=== PATIENT | male | born 1930 | race Caucasian/White ===

== ENCOUNTER → 2018-03-30 | Outpatient (CLI) | payer OTHER ==
[~2018-03-30] MED LIST: ACET325T14 PO; AMIO200T PO; ASPI325T17 PO; GABA300C10 PO; LANS15CA60 PO; LEVO100T PO; LEVO100T5 PO; METO25TA35 PO; OXYC5TAB3 PO
== END | disposition home or self-care (01) ==
LOC: CFH 09:28
PROVIDERS: ATTEND Internal Medicine
DX: K65.4 Sclerosing mesenteritis (principal); Z90.49 Acquired absence of other specified parts of digestive tract; K76.89 Other specified diseases of liver; M47.895 Other spondylosis, thoracolumbar region; M16.0 Bilateral primary osteoarthritis of hip; Z85.46 Personal history of malignant neoplasm of prostate
CPT/HCPCS: 74176

== ENCOUNTER → 2019-01-08 | Outpatient (CLI) | payer MEDICARE ==
[~2019-01-08] MED LIST changes: +OMNIPAQUE 350 MG/ML, 100ML BOTTLE ONE
[2019-01-08 12:22] LABS: CREATININE 1.45 mg/dL (0.7-1.3)
== END | disposition home or self-care (01) ==
LOC: CFH 11:45
PROVIDERS: ATTEND Internal Medicine
DX: J96.10 Chronic respiratory failure, unspecified whether with hypoxia or hypercapnia (principal)
CPT/HCPCS: 36415; 71275; 82565; 84520; Q9967